=== PATIENT | female | born 2000 | race Caucasian/White ===

== ENCOUNTER 2020-04-24 09:56 | Emergency (ER) | payer OTHER | END 2020-04-24 11:41 | disposition home or self-care (01) | LOC: FER 09:56 | DX: T14.8XXA Other injury of unspecified body region, initial encounter (principal); M54.2 Cervicalgia; R07.9 Chest pain, unspecified; M25.571 Pain in right ankle and joints of right foot; V48.6XXA Car passenger injured in noncollision transport accident in traffic accident, initial encounter; Y92.410 Unspecified street and highway as the place of occurrence of the external cause | CPT/HCPCS: 71046; 72050; 73610 ==